=== PATIENT | male | born 1975 ===

== ENCOUNTER 2020-10-03 15:26 | Emergency (ER) | payer OTHER ==
[~2020-10-03] VITALS: Ht 167.6 cm; Wt 79.4 kg
== END 2020-10-03 18:20 | disposition home or self-care (01) ==
LOC: ER 15:26
DX: S61.422A Laceration with foreign body of left hand, initial encounter (principal); W26.0XXA Contact with knife, initial encounter; Y93.89 Activity, other specified; Y92.098 Other place in other non-institutional residence as the place of occurrence of the external cause; Y99.8 Other external cause status

== ENCOUNTER 2021-03-18 08:00 | Outpatient (CLI) | payer OTHER | END 2021-03-18 08:30 | disposition home or self-care (01) | LOC: PPH VACUNA 08:00 | PROVIDERS: ATTEND Emergency Medicine Pediatric Emergency Medicine | DX: Z23 Encounter for immunization (principal) ==